=== PATIENT | male | born 1955 | race Caucasian/White ===

== ENCOUNTER 2022-03-03 13:00 | Outpatient (RCR) | payer MEDICARE, SELFPAY | END 2022-03-03 14:28 | disposition home or self-care (01) | LOC: HO.PT 13:00 | PROVIDERS: PCP Nurse Practitioner Family; Visit Provider Nurse Practitioner Family | DX: R10.9 Unspecified abdominal pain (principal); M99.05 Segmental and somatic dysfunction of pelvic region | CPT/HCPCS: 97112; 97140; 97163; 97530 ==